=== PATIENT | female | born 1975 | race Caucasian/White ===

== ENCOUNTER 2020-12-07 13:11 | Outpatient (REF) | payer BC, SELFPAY ==
[2020-12-08 07:12] LABS: SARS COV2 PCR INHOUSE POSITIVE (Negative)
== END 2020-12-07 13:12 | disposition home or self-care (01) ==
LOC: HO.LAB 13:11
PROVIDERS: Visit Provider Internal Medicine
DX: Z20.822 Contact with and (suspected) exposure to COVID-19 (principal)
CPT/HCPCS: C9803; U0003